=== PATIENT | male | born 1965 | race Caucasian/White ===

== ENCOUNTER 2018-11-18 11:26 | Day surgery (SDC) | payer BC, OTHER ==
[2018-11-18] MEDS ORDERED: PROPOFOL 0 ML (12:59)
[2018-11-18] MEDS ORDERED: LIDOCAINE 2% (SDV) 5 ML INJ (12:59)
[2018-11-18] MEDS ORDERED: PROPOFOL 40 ML (13:13)
== END 2018-11-18 13:41 | disposition home or self-care (01) ==
LOC: GIL 11:26
DX: Z12.11 Encounter for screening for malignant neoplasm of colon (principal); D12.5 Benign neoplasm of sigmoid colon; K64.8 Other hemorrhoids
CPT/HCPCS: 45380; 88305